=== PATIENT | male | born 1960 | race Asian ===

== ENCOUNTER 2017-02-22 06:03 | Day surgery (SDC) | payer OTHER ==
[~2017-02-22] VITALS: Ht 160 cm; Wt 49.1 kg
[2017-02-22] MEDS ORDERED: SODIUM CHLORIDE 0.9% 1,000 ML IV ONE ×2 (06:30→06:31)
[2017-02-22] MEDS ORDERED: PROM6.25 PO (07:33)
[2017-02-22] MEDS ORDERED: OMEP20 PO (07:33)
[2017-02-22] MEDS ORDERED: AMLO5TAB66 PO (07:33)
[2017-02-22] MEDS ORDERED: MONT10TA21 PO (07:33)
[2017-02-22] MEDS ORDERED: HYDR25TA PO (07:33)
[2017-02-22] MEDS ORDERED: CHOL200018 PO (07:33)
[2017-02-22] MEDS ORDERED: MULT-1203 PO (07:33)
[2017-02-22] MEDS ORDERED: DOXY100C40 PO (07:33)
[2017-02-22] MEDS ORDERED: FAMO40TA76 PO (07:33)
[2017-02-22] MEDS ORDERED: LEVE500T8 PO (07:33)
[2017-02-22] MEDS ORDERED: MIDAZOLAM HCL 2 MG/2 ML VIAL ONE (07:40)
[2017-02-22] MEDS ORDERED: FentaNYL CITRATE-PF 100 MCG/2 ML VIAL ONE (07:41)
[2017-02-22] MEDS ORDERED: MethylPREDNISolone SOD SUCC 125 MG/2 ML VIAL IVP ONE (09:00)
[2017-02-22] MEDS ORDERED: MethylPREDNISolone SOD SUCC 125 MG/2 ML VIAL ONE (09:04)
[2017-02-22] MEDS ORDERED: LIDOCAINE HCL 4% 50 ML SOLUTION TP ONE (11:55)
[2017-02-22] MEDS ORDERED: LIDOCAINE HCL 2% 30 ML JELLY TP ONE (11:55)
[2017-02-22] MEDS ORDERED: BENZOCAINE 20% 30 ML SOLUTION TP ONE (11:55)
[2017-02-22] MEDS ORDERED: OXYGEN THERAPY IH SCH (20:00)
== END 2017-02-22 10:40 | disposition home or self-care (01) ==
LOC: SURGERY 06:03
PROVIDERS: ATTEND Internal Medicine Critical Care Medicine
DX: J38.4 Edema of larynx (principal); B37.0 Candidal stomatitis; J44.9 Chronic obstructive pulmonary disease, unspecified; M54.2 Cervicalgia; E07.9 Disorder of thyroid, unspecified; M79.2 Neuralgia and neuritis, unspecified; Z98.49 Cataract extraction status, unspecified eye; Z87.01 Personal history of pneumonia (recurrent)
CPT/HCPCS: 31623; 31624; 71010; 87015 ×2; 87070; 87077; 87101; 87147; 87186; 87205; 87220; 88108; 88312; J2250; J2930; J3010; J7030; 99152